=== PATIENT | male | born 1980 | race Caucasian/White ===

== ENCOUNTER 2022-01-04 00:24 | Inpatient (IN) | payer OTHER, SELFPAY ==
[2022-01-04 00:49] VITALS: BP 120/80; PULSE 82; RESP 16; TEMP 36.6; O2SAT 97; BMI 23.3
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
[2022-01-04] MEDS: traZODone HCL 50 MG TABLET PO ×3 (01:53→21:26)
[2022-01-04] MEDS: Acetaminophen 325 MG TABLET 650 MG PO ×2 (09:23→16:50)
[2022-01-04] MEDS: Buprenorphine/Naloxone 8/2 mg FILM 1 FILM SUBLINGUAL (09:23)
[2022-01-04] MEDS: LORazepam 1 MG TABLET PO ×3 (12:10→21:26)
--- NOTE | 2022-01-04 13:04 | P.CONHOSP_ITS ---
History of Present Illness Data of Consult Service Date: 01/04/22 Requesting physician: Frederick Puga Primary Care Provider: Unknown Physician HPI Reason for consult: medical h&p 41 year old history of alcohol dependence, polysubstance abuse, opioid abuse on suboxone, depression and anxiety, and who smokes 1.5 packs cigarettes daily. His last drink was 4 days ago- cosumed 1 pint vodka, sleeve nips. Was treated for withdrawal at [facility] prior to transfer to . He is reporting cold sweats, treamors, and neuropathy intermittently. Denies history of etoh withdrawal seizure. Review of Systems Review of Systems: General: No fevers, malaise, unintentional weight loss Cardiovascular: No chest pain, palpitations, or leg edema Respiratory: No shortness of breath, wheezing, cough GI: No abdominal pain, nausea, vomiting, diarrhea, constipation, melena, hematochezia Neuro: +tremors, +neuropathy. No headaches, weakness, paresthesias Psych: +sweats, depression/anxiety. No si/hi Skin: No rashes or lesions [facility] Medical History (Updated 01/04/22 @ 17:48 by Isaura Welch APRN) ADD (attention deficit disorder) Anxiety MDD (major depressive disorder) Opioid use disorder, severe, on maintenance therapy PTSD (post-traumatic stress disorder) Family History (Updated 01/04/22 @ 13:12 by QUITA Flowers) Father CAD (coronary artery disease) Diabetes Mother Lung cancer Social History Household Members: None Housing: Apartment Do you presently have visiting nurse or other home services: No Patient Tobacco Use Status: Current everyday Tobacco user Tobacco use type: Cigarette Cigarette Packs Per Day: 1 Cigarettes Per Day: 20.0 Years Smoked: 20 Smoked in Last 30 Days: Yes e-Cigarette/Vaping Use: Currently Using Patient Interested in Nicotine Replacement: Yes Patient Given Instructions on How to Stop Smoking: Yes Date Education Initiated: 01/04/22 Second Hand Smoke Exposure: No Use of substances other than those prescribed or required for medical reasons: Yes Substance Use Type: Crack/Cocaine and Marijuana Substance Use Frequency: Weekly Last Used Substance: Days (ago) Currently Displaying Signs/Symptoms of Drug Intoxication Withdrawal: No Any prior treatment program specific to substance use: No Have you been hit, kicked, punched, or otherwise hurt by someone within the past year? If so, by whom?: No Do you feel safe in your current relationship?: No Is there a partner from a previous relationship who is making you feel unsafe now?: No Are you made to feel afraid or neglected: No Spiritual Healthcare Practices: prayer Yarsani Healthcare Practices: prayer Cultural Healthcare Practices: prayer Advance Directives: No Advance Directives Information Provided: No Do you have thoughts of harming others: None Do you have a plan to hurt others: No Plan Recently lost weight without trying: No How much weight loss: Not applicable Eating poorly because of decreased appetite: No Nutrition screen score: 0 Nutrition Risks: No Nutritional Risk Poor oral hygiene: No service: No Sexual orientation: Straight/Heterosexual Meds Allergies Allergy/AdvReac Type Severity Reaction Status Date / Time No Known Allergies Allergy Verified 01/04/22 00:35 Active Medications: Current Medications Acetaminophen (Acetaminophen 325 Mg Tablet) 650 mg PO Q6H PRN PRN Reason: Headache/Pain Mild Scale (1-3) Last Admin: 01/04/22 09:23 Dose: 650 mg Al Hydroxide/Mg Hydroxide (Magnesium Hydrox/Alum Hydrox 30 Ml Oral.Susp) 30 ml PO Q6H PRN PRN Reason: Heartburn/Nausea Buprenorphine/Naloxone (Buprenorphine/Naloxone 8/2 Mg Film) 1 film SUBLINGUAL DAILY [facility] Last Admin: 01/04/22 09:23 Dose: 1 film Gabapentin (Gabapentin 400 Mg Capsule) 400 mg PO TID [facility] Hydroxyzine HCl (Hydroxyzine Hcl 25 Mg Tablet) 25 mg PO Q6H PRN PRN Reason: Anxiety Lorazepam (Lorazepam 1 Mg Tablet) 1 mg PO Q4H PRN PRN Reason: Alcohol Withdrawal Last Admin: 01/04/22 12:10 Dose: 1 mg Magnesium Hydroxide (Milk Of Magnesia 30 Ml Oral.Susp) 30 ml PO DAILY PRN PRN Reason: Constipation Multivitamins/Vitamin C (Multivitamin Tablet) 1 tab PO DAILY [facility] Nicotine Polacrilex (Nicotine Polacrilex 2 Mg Gum) 4 mg BUCCAL Q2H PRN PRN Reason: Nicotine Cravings Non-Formulary Medication (Vyvanse) 70 mg PO DAILY [facility] Thiamine HCl (Thiamine Hcl 100 Mg Tablet) 100 mg PO DAILY [facility] Trazodone HCl (Trazodone Hcl 50 Mg Tablet) 50 mg PO BEDTIME PRN PRN Reason: Insomnia Last Admin: 01/04/22 01:53 Dose: 50 mg Physical Exam Vital Signs and Narrative: Vital Signs: Last Vital Signs Temp 97.8 F 01/04/22 00:49 Pulse 82 01/04/22 00:49 Resp 16 01/04/22 00:49 BP 120/80 01/04/22 00:49 Pulse Ox 97 01/04/22 00:49 O2 Del Method 01/04/22 00:49 BMI result Body Mass Index 23.3 Constitutional - Awake and Alert, No apparent distress Eyes - PERRLA, EOMI Cardiovascular - S1S2, RRR, No edema Respiratory - Normal lung expansion, Normal respiratory effort, No respiratory distress, CTA bilaterally Gastrointestinal - NT / ND; +BS; No rebound or guarding Extremities - no calf tenderness bilaterally, no swelling Musculoskeletal - Normal inspection, normal ROM Skin - Warm/Dry, dry peeling skin face Neurological - Alert & oriented x3, CN II-XII in tact, 5/5 strength BUE/BLE, no tremor Psychological - Appropriate affect Assessment and Plan (1) MDD (major depressive disorder): Status: Acute (2) Anxiety: Status: Acute (3) Alcohol dependence: Status: Acute Plan 41 year old history of alcohol dependence, polysubstance abuse, opioid abuse on suboxone, depression and anxiety, and who smokes 1.5 packs cigarettes daily admitted to psychiatry. 1-MDD/anxiety -Plan per psychiatry 2-ADD/ADHD -plan per psychiatry 3-Alcohol dependence -CIWA scale score 16. -Ativan prn for etoh withdrawal symptoms -No hx etoh withdrawal seizure. Unlikely to experience seizure at this point given time since last drink -Continue thiamine. Recommend folic acid as well -Check vitamin b12 and replete as needed 4-Opioid dependence -Continue suboxone -Docusate prn for constipation 5-Polysubstance abuse- cocaine last use 01/01 and MJ -Addiction consult as ordered 6-Tobacco depedence -NPT patches Thank you for allowing me to participate in this consult. Signing off at this time. Please do not hesitate to call for further questions.
[2022-01-04] MEDS: Gabapentin 400 MG CAPSULE PO ×2 (15:24→20:05)
[2022-01-04] MEDS: Nicotine 21 MG PATCH.TD24 TRANSDERMA (15:24)
[2022-01-04] MEDS: Buprenorphine/Naloxone 8/2 mg TAB.SUBL 1 TAB SUBLINGUAL ×2 (15:24→20:04)
[2022-01-04] MEDS: Multivitamin TABLET 1 TAB PO (16:35)
[2022-01-04 16:45] VITALS: BP 106/59; PULSE 101; TEMP 36.1
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
[2022-01-05] MEDS: hydrOXYzine HCL 25 MG TABLET PO ×2 (00:15→22:05)
[2022-01-05] MEDS: traZODone HCL 50 MG TABLET PO ×4 (00:15→23:48)
[2022-01-05 07:00] VITALS: BMI 24.0
[2022-01-05] MEDS: Multivitamin TABLET 1 TAB PO (08:58)
[2022-01-05] MEDS: Gabapentin 400 MG CAPSULE PO ×3 (08:58→19:30)
[2022-01-05] MEDS: Dextroamphetamine/Amphetamine XR 10 MG CAP.ER.24H 30 MG PO (08:58)
[2022-01-05] MEDS: Nicotine 21 MG PATCH.TD24 TRANSDERMA (08:58)
[2022-01-05] MEDS: Thiamine HCL 100 MG TABLET PO (08:58)
[2022-01-05] MEDS: Buprenorphine/Naloxone 8/2 mg FILM 1 FILM SUBLINGUAL ×3 (09:46→19:29)
[2022-01-05] MEDS: Acetaminophen 325 MG TABLET 650 MG PO (14:26)
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
[2022-01-05 18:00] VITALS: BP 156/74; PULSE 103; RESP 16; TEMP 36.6; O2SAT 99
[2022-01-05] MEDS: LORazepam 1 MG TABLET PO ×2 (19:29→23:48)
[2022-01-05] MEDS: Mineral Oil/Petrolatum,White 106 GM Tube 1 APPL TOPICAL (19:32)
--- NOTE | 2022-01-06 00:10 | P.PNPSI_ITS ---
Subjective Subjective Date of Service: 01/05/22 Reason For Visit: Unspecified trauma, stress related d/o Subjective Notes: Conditional Voluntary Interim History: Pepe reports feeling improved. Reports sx of rosacea, eucerin cream ordered. Denies SI, HI, perceptual alterations. Reports sleep is adequate as is appetite. Visable in milieu and with peers. Medication Compliance: Yes Side effects from medications: No Attending Groups: Intermittent Review of Systems Acute medical concerns: No Medical Review of Systems: unchanged Mental Status Exam Mental Status Exam Patient Appearance: Appropriate Patient Orientation: Person, Place, Time and Situation Patient Behavior: Talkative and Good Eye Contact Mood Description: Withdrawn, Anxious and Apprehensive Affect Description: Anxious Patient Cognition Impaired: No Ability to Follow Directions: Good Speech Pattern: Spontaneous Speech Memory Description: Intact Hallucinations: None Delusions: Not Present Perceptual Disturbances: Depersonalization and Derealization Thought Content: positive for Perseveration and positive for Suicidal Ideation (denies) Depressive Symptoms: Increased Anxiety, Loss of Int. in Activity, Hopelessness, Unhappiness, Increased Fatigue, Thoughts of /Suicide (denies currently), Low Self Esteem, Loss of Energy and Difficulty Concentrating Judgement: Good Diagnostics Vital Signs (24Hr): Vital Signs - 24 hr 01/05/22 18:00 Temperature 98 F Pulse Rate 103 H Respiratory Rate 16 Blood Pressure 156/74 H Pulse Oximetry 99 Oxygen Delivery Method Room Air BMI result Body Mass Index 24.0 Medications Medications Current Medications Acetaminophen (Acetaminophen 325 Mg Tablet) 650 mg PO Q6H PRN PRN Reason: Headache/Pain Mild Scale (1-3) Last Admin: 01/05/22 14:26 Dose: 650 mg Al Hydroxide/Mg Hydroxide (Magnesium Hydrox/Alum Hydrox 30 Ml Oral.Susp) 30 ml PO Q6H PRN PRN Reason: Heartburn/Nausea Amphetamine/Dextroamphetamine (Dextroamphetamine/Amphetamine Xr 10 Mg Cap.Er.24h) 30 mg PO DAILY [facility] Last Admin: 01/05/22 08:58 Dose: 30 mg Buprenorphine/Naloxone (Buprenorphine/Naloxone 8/2 Mg Film) 1 film SUBLINGUAL TID [facility] Last Admin: 01/05/22 19:29 Dose: 1 film Docusate Sodium (Docusate Sodium 100 Mg Capsule) 100 mg PO BID PRN PRN Reason: Constipation Gabapentin (Gabapentin 400 Mg Capsule) 400 mg PO TID [facility] Last Admin: 01/05/22 19:30 Dose: 400 mg Hydroxyzine HCl (Hydroxyzine Hcl 25 Mg Tablet) 25 mg PO Q6H PRN PRN Reason: Anxiety Last Admin: 01/05/22 22:05 Dose: 25 mg Lorazepam (Lorazepam 1 Mg Tablet) 1 mg PO Q4H PRN PRN Reason: Alcohol Withdrawal Last Admin: 01/05/22 23:48 Dose: 1 mg Magnesium Hydroxide (Milk Of Magnesia 30 Ml Oral.Susp) 30 ml PO DAILY PRN PRN Reason: Constipation Multi-Ingred Cream/Lotion/Oil/Oint (Mineral Oil/Petrolatum,White 106 Gm Tube) 1 appl TOPICAL BID [facility]; Protocol Last Admin: 01/05/22 19:32 Dose: 1 appl Multivitamins/Vitamin C (Multivitamin Tablet) 1 tab PO DAILY [facility] Last Admin: 01/05/22 08:58 Dose: 1 tab Nicotine (Nicotine 21 Mg Patch.Td24) 21 mg TRANSDERMA DAILY [facility] Last Admin: 01/05/22 08:58 Dose: 21 mg Nicotine Polacrilex (Nicotine Polacrilex 2 Mg Gum) 4 mg BUCCAL Q2H PRN PRN Reason: Nicotine Cravings Non-Formulary Medication (Vyvanse) 70 mg PO DAILY [facility] Sertraline HCl (Sertraline Hcl 25 Mg Tablet) 25 mg PO DAILY [facility] Thiamine HCl (Thiamine Hcl 100 Mg Tablet) 100 mg PO DAILY [facility] Last Admin: 01/05/22 08:58 Dose: 100 mg Trazodone HCl (Trazodone Hcl 50 Mg Tablet) 50 mg PO BEDTIME PRN PRN Reason: Insomnia Last Admin: 01/05/22 23:48 Dose: 50 mg Allergies Allergies Allergy/AdvReac Type Severity Reaction Status Date / Time No Known Allergies Allergy Verified 01/04/22 00:35 Assessment & Plan Assessment & Plan (1) MDD (major depressive disorder): Status: Acute Code(s): F32.9 - Major depressive disorder, single episode, unspecified (2) Anxiety: Status: Acute Code(s): F41.9 - Anxiety disorder, unspecified (3) Alcohol dependence: Status: Acute Code(s): F10.20 - Alcohol dependence, uncomplicated Plan 41 year old history of alcohol dependence, polysubstance abuse, opioid abuse on suboxone, depression and anxiety, and who smokes 1.5 packs cigarettes daily admitted to psychiatry. 1-MDD/anxiety -Plan per psychiatry 2-ADD/ADHD -plan per psychiatry 3-Alcohol dependence -CIWA scale score 16. -Ativan prn for etoh withdrawal symptoms -No hx etoh withdrawal seizure. Unlikely to experience seizure at this point given time since last drink -Continue thiamine. Recommend folic acid as well -Check vitamin b12 and replete as needed 4-Opioid dependence -Continue suboxone -Docusate prn for constipation 5-Polysubstance abuse- cocaine last use 01/01 and MJ -Addiction consult as ordered 6-Tobacco depedence -NPT patches Thank you for allowing me to participate in this consult. Signing off at this time. Please do not hesitate to call for further questions. I spent minutes with the patient and/or on the patient floor today, greater than?50% of which was spent counseling/coordinating care. Patient educated on: medication risk/benefits and therapeutic strategies Informed Consent: understands Reason for contiued inpatient stay Substantial Risk for: rapid decompensation
[2022-01-06] MEDS: Dextroamphetamine/Amphetamine XR 10 MG CAP.ER.24H 30 MG PO (09:18)
[2022-01-06] MEDS: Thiamine HCL 100 MG TABLET PO (09:19)
[2022-01-06] MEDS: Sertraline HCL 25 MG TABLET PO (09:19)
[2022-01-06] MEDS: Multivitamin TABLET 1 TAB PO (09:19)
[2022-01-06] MEDS: Gabapentin 400 MG CAPSULE PO ×3 (09:19→19:54)
[2022-01-06] MEDS: Folic Acid 1 MG TABLET PO (09:19)
[2022-01-06] MEDS: Nicotine 21 MG PATCH.TD24 TRANSDERMA (09:20)
[2022-01-06] MEDS: Buprenorphine/Naloxone 8/2 mg FILM 1 FILM SUBLINGUAL ×3 (09:21→19:54)
[2022-01-06 09:23] VITALS: BP 100/73; PULSE 122; RESP 18; TEMP 36.1; O2SAT 96
[2022-01-06 10:50] LABS: Folate 6.6 ng/mL (> or = 4.0); Vitamin B12 399 pg/mL (200-900)
[2022-01-06] MEDS: Nicotine Polacrilex 2 MG GUM 4 MG BUCCAL (13:47)
[2022-01-06] MEDS: LORazepam 1 MG TABLET PO ×2 (14:46→22:22)
--- NOTE | 2022-01-06 16:40 | HO.ADDICTPRO ---
Subjective Subjective Date of Service: 01/06/22 Reason For Visit: Unspecified trauma, stress related d/o Interim History: Patient seen in follow up. Seen by RSRN yesterday and requesting to start Disulfiram. Patient reports he had been prescribed disulfiram for some time and stopped taking it approx 7 months ago. He reports that while he was taking it, it was effective in that he never had a drink. When he drank on it, he became extremely ill, but continued to drink. He is drinking about a sleeve of fireball nips daily along with beer. He has been in recovery from OUD for some time, and has established providers at [facility]. Aware of risks and benefits to disulfiram. Requesting to start it prior to discharge so that deterrent is in place. Review of Systems Constitutional: Reports as per HPI and Reports no additional constitutional complaints Mental Status Exam Mental Status Exam Patient Appearance: Well Grooomed Patient Orientation: Person, Place, Time and Situation Level of Consciousness: Awake and Appropriate Patient Behavior: Appropriate and Cooperative Mood Description: Anxious Affect Description: Appropriate and Anxious Patient Cognition Impaired: No Thought Process: Intact and Goal Oriented Thought Content: positive for Goal Oriented Judgement: Fair Diagnostics Vital Signs (24Hr): Vital Signs - 24 hr 01/05/22 18:00 01/06/22 09:23 Temperature 98 F 97.0 F Pulse Rate 103 H 122 H Respiratory Rate 16 18 Blood Pressure 156/74 H 100/73 Pulse Oximetry 99 96 Oxygen Delivery Method Room Air Room Air BMI result Body Mass Index 24.0 Labs Labs: Laboratory Results - last 48 hr 01/06/22 08:50 Vitamin B12 399 Folate 6.6 Medications Medications Current Medications Acetaminophen (Acetaminophen 325 Mg Tablet) 650 mg PO Q6H PRN PRN Reason: Headache/Pain Mild Scale (1-3) Last Admin: 01/05/22 14:26 Dose: 650 mg Al Hydroxide/Mg Hydroxide (Magnesium Hydrox/Alum Hydrox 30 Ml Oral.Susp) 30 ml PO Q6H PRN PRN Reason: Heartburn/Nausea Amphetamine/Dextroamphetamine (Dextroamphetamine/Amphetamine Xr 10 Mg Cap.Er.24h) 30 mg PO DAILY [facility] Last Admin: 01/06/22 09:18 Dose: 30 mg Buprenorphine/Naloxone (Buprenorphine/Naloxone 8/2 Mg Film) 1 film SUBLINGUAL TID [facility] Last Admin: 01/06/22 14:14 Dose: 1 film Docusate Sodium (Docusate Sodium 100 Mg Capsule) 100 mg PO BID PRN PRN Reason: Constipation Folic Acid (Folic Acid 1 Mg Tablet) 1 mg PO DAILY [facility] Last Admin: 01/06/22 09:19 Dose: 1 mg Gabapentin (Gabapentin 400 Mg Capsule) 400 mg PO TID [facility] Last Admin: 01/06/22 14:14 Dose: 400 mg Hydroxyzine HCl (Hydroxyzine Hcl 25 Mg Tablet) 25 mg PO Q6H PRN PRN Reason: Anxiety Last Admin: 01/05/22 22:05 Dose: 25 mg Lorazepam (Lorazepam 1 Mg Tablet) 1 mg PO Q4H PRN PRN Reason: Alcohol Withdrawal Last Admin: 01/06/22 14:46 Dose: 1 mg Magnesium Hydroxide (Milk Of Magnesia 30 Ml Oral.Susp) 30 ml PO DAILY PRN PRN Reason: Constipation Multi-Ingred Cream/Lotion/Oil/Oint (Mineral Oil/Petrolatum,White 106 Gm Tube) 1 appl TOPICAL BID [facility]; Protocol Last Admin: 01/06/22 09:22 Dose: Not Given Multivitamins/Vitamin C (Multivitamin Tablet) 1 tab PO DAILY [facility] Last Admin: 01/06/22 09:19 Dose: 1 tab Nicotine (Nicotine 21 Mg Patch.Td24) 21 mg TRANSDERMA DAILY [facility] Last Admin: 01/06/22 09:20 Dose: 21 mg Nicotine Polacrilex (Nicotine Polacrilex 2 Mg Gum) 4 mg BUCCAL Q2H PRN PRN Reason: Nicotine Cravings Last Admin: 01/06/22 13:47 Dose: 4 mg Non-Formulary Medication (Vyvanse) 70 mg PO DAILY [facility] Sertraline HCl (Sertraline Hcl 25 Mg Tablet) 25 mg PO DAILY [facility] Last Admin: 01/06/22 09:19 Dose: 25 mg Thiamine HCl (Thiamine Hcl 100 Mg Tablet) 100 mg PO DAILY [facility] Last Admin: 01/06/22 09:19 Dose: 100 mg Trazodone HCl (Trazodone Hcl 50 Mg Tablet) 50 mg PO BEDTIME PRN PRN Reason: Insomnia Last Admin: 01/05/22 23:48 Dose: 50 mg Allergies Allergies Allergy/AdvReac Type Severity Reaction Status Date / Time No Known Allergies Allergy Verified 01/04/22 00:35 Assessment & Plan Assessment & Plan (1) Alcohol use disorder, severe, dependence: Status: Acute Code(s): F10.20 - Alcohol dependence, uncomplicated Assessment and Plan: last drink reported to be 01/01. Discussed case with RN. Disulfiram ordered to community pharmacy, and someone will bring to hospital should be taking once daily in AM reinforce interactions with alcohol including common items like hand field sales associate I spent __30____ minutes with the patient and/or on the patient floor today, greater than?50% of which was spent counseling/coordinating care.
--- NOTE | 2022-01-06 16:50 | HO.PSYCHPN ---
Subjective Subjective Date of Service: 01/06/22 Reason For Visit: Unspecified trauma, stress related d/o Subjective Notes: Conditional Voluntary Healthcare Proxy: No Guardianship: No Medical Problems Affecting Mental Status: No Interim History: Denies questions or concerns today. Agrees to begin folic acid replacement. Reports sleep is adequate, appetite returning, continues to experience detox sx. Attempting to manage with non medication interventions he reports when possible Medication Compliance: Yes Side effects from medications: No Attending Groups: Intermittent Review of Systems Acute medical concerns: No Medical Review of Systems: unchanged Mental Status Exam Mental Status Exam Patient Appearance: Appropriate Patient Orientation: Person, Place, Time and Situation Patient Behavior: Talkative and Good Eye Contact Mood Description: Withdrawn, Anxious and Apprehensive Affect Description: Anxious Patient Cognition Impaired: No Ability to Follow Directions: Good Speech Pattern: Spontaneous Speech Memory Description: Intact Hallucinations: None Delusions: Not Present Perceptual Disturbances: Depersonalization and Derealization Thought Content: positive for Perseveration and positive for Suicidal Ideation (denies) Depressive Symptoms: Increased Anxiety, Loss of Int. in Activity, Hopelessness, Unhappiness, Increased Fatigue, Thoughts of /Suicide (denies currently), Low Self Esteem, Loss of Energy and Difficulty Concentrating Judgement: Good Diagnostics Vital Signs (24Hr): Vital Signs - 24 hr 01/05/22 18:00 01/06/22 09:23 Temperature 98 F 97.0 F Pulse Rate 103 H 122 H Respiratory Rate 16 18 Blood Pressure 156/74 H 100/73 Pulse Oximetry 99 96 Oxygen Delivery Method Room Air Room Air BMI result Body Mass Index 24.0 Labs Labs: Laboratory Results - last 48 hr 01/06/22 08:50 Vitamin B12 399 Folate 6.6 Medications Medications Current Medications Acetaminophen (Acetaminophen 325 Mg Tablet) 650 mg PO Q6H PRN PRN Reason: Headache/Pain Mild Scale (1-3) Last Admin: 01/05/22 14:26 Dose: 650 mg Al Hydroxide/Mg Hydroxide (Magnesium Hydrox/Alum Hydrox 30 Ml Oral.Susp) 30 ml PO Q6H PRN PRN Reason: Heartburn/Nausea Amphetamine/Dextroamphetamine (Dextroamphetamine/Amphetamine Xr 10 Mg Cap.Er.24h) 30 mg PO DAILY [facility] Last Admin: 01/06/22 09:18 Dose: 30 mg Buprenorphine/Naloxone (Buprenorphine/Naloxone 8/2 Mg Film) 1 film SUBLINGUAL TID [facility] Last Admin: 01/06/22 14:14 Dose: 1 film Docusate Sodium (Docusate Sodium 100 Mg Capsule) 100 mg PO BID PRN PRN Reason: Constipation Folic Acid (Folic Acid 1 Mg Tablet) 1 mg PO DAILY [facility] Last Admin: 01/06/22 09:19 Dose: 1 mg Gabapentin (Gabapentin 400 Mg Capsule) 400 mg PO TID [facility] Last Admin: 01/06/22 14:14 Dose: 400 mg Hydroxyzine HCl (Hydroxyzine Hcl 25 Mg Tablet) 25 mg PO Q6H PRN PRN Reason: Anxiety Last Admin: 01/05/22 22:05 Dose: 25 mg Lorazepam (Lorazepam 1 Mg Tablet) 1 mg PO Q4H PRN PRN Reason: Alcohol Withdrawal Last Admin: 01/06/22 14:46 Dose: 1 mg Magnesium Hydroxide (Milk Of Magnesia 30 Ml Oral.Susp) 30 ml PO DAILY PRN PRN Reason: Constipation Multi-Ingred Cream/Lotion/Oil/Oint (Mineral Oil/Petrolatum,White 106 Gm Tube) 1 appl TOPICAL BID [facility]; Protocol Last Admin: 01/06/22 09:22 Dose: Not Given Multivitamins/Vitamin C (Multivitamin Tablet) 1 tab PO DAILY [facility] Last Admin: 01/06/22 09:19 Dose: 1 tab Nicotine (Nicotine 21 Mg Patch.Td24) 21 mg TRANSDERMA DAILY [facility] Last Admin: 01/06/22 09:20 Dose: 21 mg Nicotine Polacrilex (Nicotine Polacrilex 2 Mg Gum) 4 mg BUCCAL Q2H PRN PRN Reason: Nicotine Cravings Last Admin: 01/06/22 13:47 Dose: 4 mg Non-Formulary Medication (Vyvanse) 70 mg PO DAILY [facility] Sertraline HCl (Sertraline Hcl 25 Mg Tablet) 25 mg PO DAILY [facility] Last Admin: 01/06/22 09:19 Dose: 25 mg Thiamine HCl (Thiamine Hcl 100 Mg Tablet) 100 mg PO DAILY [facility] Last Admin: 01/06/22 09:19 Dose: 100 mg Trazodone HCl (Trazodone Hcl 50 Mg Tablet) 50 mg PO BEDTIME PRN PRN Reason: Insomnia Last Admin: 01/05/22 23:48 Dose: 50 mg Allergies Allergies Allergy/AdvReac Type Severity Reaction Status Date / Time No Known Allergies Allergy Verified 01/04/22 00:35 Assessment & Plan Assessment & Plan (1) MDD (major depressive disorder): Status: Acute Code(s): F32.9 - Major depressive disorder, single episode, unspecified Assessment and Plan: 01/06/22- Continue current plan. (2) Anxiety: Status: Acute Code(s): F41.9 - Anxiety disorder, unspecified (3) Alcohol dependence: Status: Acute Code(s): F10.20 - Alcohol dependence, uncomplicated Plan 41 year old history of alcohol dependence, polysubstance abuse, opioid abuse on suboxone, depression and anxiety, and who smokes 1.5 packs cigarettes daily admitted to psychiatry. 1-MDD/anxiety -Plan per psychiatry 2-ADD/ADHD -plan per psychiatry 3-Alcohol dependence -CIWA scale score 16. -Ativan prn for etoh withdrawal symptoms -No hx etoh withdrawal seizure. Unlikely to experience seizure at this point given time since last drink -Continue thiamine. Recommend folic acid as well -Check vitamin b12 and replete as needed 4-Opioid dependence -Continue suboxone -Docusate prn for constipation 5-Polysubstance abuse- cocaine last use 01/01 and MJ -Addiction consult as ordered 6-Tobacco depedence -NPT patches Thank you for allowing me to participate in this consult. Signing off at this time. Please do not hesitate to call for further questions. I spent minutes with the patient and/or on the patient floor today, greater than?50% of which was spent counseling/coordinating care. Patient educated on: medication risk/benefits and therapeutic strategies Informed Consent: understands and further education needed Reason for contiued inpatient stay Substantial Risk for: rapid decompensation
[2022-01-06 18:00] VITALS: BP 131/76; PULSE 93; RESP 16; TEMP 36.6; O2SAT 96
[2022-01-06] MEDS: traZODone HCL 50 MG TABLET PO ×2 (22:22→23:30)
[2022-01-06] MEDS: hydrOXYzine HCL 25 MG TABLET PO (23:30)
[2022-01-07 09:00] VITALS: BP 114/78; PULSE 94; TEMP 36.6
[2022-01-07] MEDS: Buprenorphine/Naloxone 8/2 mg FILM 1 FILM SUBLINGUAL ×3 (09:52→19:07)
[2022-01-07] MEDS: Dextroamphetamine/Amphetamine XR 10 MG CAP.ER.24H 30 MG PO (09:52)
[2022-01-07] MEDS: Nicotine 21 MG PATCH.TD24 TRANSDERMA (09:52)
[2022-01-07] MEDS: Acetaminophen 325 MG TABLET 650 MG PO (09:53)
[2022-01-07] MEDS: Gabapentin 400 MG CAPSULE PO ×3 (09:53→19:07)
[2022-01-07] MEDS: Folic Acid 1 MG TABLET PO (09:53)
[2022-01-07] MEDS: Multivitamin TABLET 1 TAB PO (09:53)
[2022-01-07] MEDS: Thiamine HCL 100 MG TABLET PO (09:53)
[2022-01-07] MEDS: Sertraline HCL 25 MG TABLET PO (09:54)
[2022-01-07] MEDS: Mineral Oil/Petrolatum,White 106 GM Tube 1 APPL TOPICAL (09:56)
[2022-01-07] MEDS: LORazepam 1 MG TABLET PO ×2 (13:12→19:07)
[2022-01-07 18:00] VITALS: BP 137/83; PULSE 119; TEMP 36.3; O2SAT 94
[2022-01-07] MEDS: traZODone HCL 50 MG TABLET PO ×3 (19:07→22:21)
[2022-01-07] MEDS: Nicotine Polacrilex 2 MG GUM 4 MG BUCCAL (20:16)
[2022-01-07] MEDS: hydrOXYzine HCL 25 MG TABLET PO (22:21)
[2022-01-08 08:30] VITALS: BP 149/72; PULSE 91; TEMP 36.4
[2022-01-08] MEDS: Nicotine 21 MG PATCH.TD24 TRANSDERMA (08:58)
[2022-01-08] MEDS: Dextroamphetamine/Amphetamine XR 10 MG CAP.ER.24H 30 MG PO (08:59)
[2022-01-08] MEDS: Sertraline HCL 25 MG TABLET PO (09:00)
[2022-01-08] MEDS: Acetaminophen 325 MG TABLET 650 MG PO ×2 (09:00→16:53)
[2022-01-08] MEDS: Multivitamin TABLET 1 TAB PO (09:00)
[2022-01-08] MEDS: Thiamine HCL 100 MG TABLET PO (09:00)
[2022-01-08] MEDS: Gabapentin 400 MG CAPSULE PO ×3 (09:00→18:52)
[2022-01-08] MEDS: Mineral Oil/Petrolatum,White 106 GM Tube 1 APPL TOPICAL (09:00)
[2022-01-08] MEDS: Folic Acid 1 MG TABLET PO (09:00)
[2022-01-08] MEDS: Buprenorphine/Naloxone 8/2 mg FILM 1 FILM SUBLINGUAL ×3 (09:01→18:52)
[2022-01-08] MEDS: LORazepam 1 MG TABLET PO ×2 (10:36→16:53)
[2022-01-08] MEDS: Milk of Magnesia 30 ML ORAL.SUSP PO (10:57)
--- NOTE | 2022-01-08 16:06 | HO.PSYCHPN ---
Subjective Subjective Date of Service: 01/07/22 Reason For Visit: Unspecified trauma, stress related d/o Subjective Notes: Conditional Voluntary Healthcare Proxy: No Guardianship: No Medical Problems Affecting Mental Status: No Interim History: No questions or concerns today. Denies med SE Continues with subjective sx of detox. Medication Compliance: Yes Side effects from medications: No Attending Groups: Intermittent Review of Systems Acute medical concerns: No Medical Review of Systems: unchanged Mental Status Exam Mental Status Exam Patient Appearance: Appropriate Patient Orientation: Person, Place, Time and Situation Patient Behavior: Talkative and Good Eye Contact Mood Description: Withdrawn, Anxious and Apprehensive Affect Description: Anxious Patient Cognition Impaired: No Ability to Follow Directions: Good Speech Pattern: Spontaneous Speech Memory Description: Intact Hallucinations: None Delusions: Not Present Perceptual Disturbances: Depersonalization and Derealization Thought Content: positive for Perseveration and positive for Suicidal Ideation (denies) Depressive Symptoms: Increased Anxiety, Loss of Int. in Activity, Hopelessness, Unhappiness, Increased Fatigue, Thoughts of /Suicide (denies currently), Low Self Esteem, Loss of Energy and Difficulty Concentrating Judgement: Good Diagnostics Vital Signs (24Hr): Vital Signs - 24 hr 01/07/22 18:00 01/08/22 08:30 Temperature 97.4 F 97.6 F Pulse Rate 119 H 91 Blood Pressure 137/83 149/72 H Pulse Oximetry 94 Oxygen Delivery Method Room Air BMI result Body Mass Index 24.0 Medications Medications Current Medications Acetaminophen (Acetaminophen 325 Mg Tablet) 650 mg PO Q6H PRN PRN Reason: Headache/Pain Mild Scale (1-3) Last Admin: 01/08/22 09:00 Dose: 650 mg Al Hydroxide/Mg Hydroxide (Magnesium Hydrox/Alum Hydrox 30 Ml Oral.Susp) 30 ml PO Q6H PRN PRN Reason: Heartburn/Nausea Amphetamine/Dextroamphetamine (Dextroamphetamine/Amphetamine Xr 10 Mg Cap.Er.24h) 30 mg PO DAILY [facility] Last Admin: 01/08/22 08:59 Dose: 30 mg Buprenorphine/Naloxone (Buprenorphine/Naloxone 8/2 Mg Film) 1 film SUBLINGUAL TID [facility] Last Admin: 01/08/22 14:19 Dose: 1 film Docusate Sodium (Docusate Sodium 100 Mg Capsule) 100 mg PO BID PRN PRN Reason: Constipation Fluoxetine HCl (Fluoxetine Hcl 20 Mg Capsule) 20 mg PO DAILY [facility] Folic Acid (Folic Acid 1 Mg Tablet) 1 mg PO DAILY [facility] Last Admin: 01/08/22 09:00 Dose: 1 mg Gabapentin (Gabapentin 400 Mg Capsule) 400 mg PO TID [facility] Last Admin: 01/08/22 14:19 Dose: 400 mg Hydroxyzine HCl (Hydroxyzine Hcl 25 Mg Tablet) 25 mg PO Q6H PRN PRN Reason: Anxiety Last Admin: 01/07/22 22:21 Dose: 25 mg Lorazepam (Lorazepam 1 Mg Tablet) 1 mg PO Q4H PRN PRN Reason: Alcohol Withdrawal Last Admin: 01/08/22 10:36 Dose: 1 mg Magnesium Hydroxide (Milk Of Magnesia 30 Ml Oral.Susp) 30 ml PO DAILY PRN PRN Reason: Constipation Last Admin: 01/08/22 10:57 Dose: 30 ml Multi-Ingred Cream/Lotion/Oil/Oint (Mineral Oil/Petrolatum,White 106 Gm Tube) 1 appl TOPICAL BID [facility]; Protocol Last Admin: 01/08/22 09:00 Dose: 1 appl Multivitamins/Vitamin C (Multivitamin Tablet) 1 tab PO DAILY [facility] Last Admin: 01/08/22 09:00 Dose: 1 tab Nicotine (Nicotine 21 Mg Patch.Td24) 21 mg TRANSDERMA DAILY [facility] Last Admin: 01/08/22 08:58 Dose: 21 mg Nicotine Polacrilex (Nicotine Polacrilex 2 Mg Gum) 4 mg BUCCAL Q2H PRN PRN Reason: Nicotine Cravings Last Admin: 01/07/22 20:16 Dose: 4 mg Thiamine HCl (Thiamine Hcl 100 Mg Tablet) 100 mg PO DAILY [facility] Last Admin: 01/08/22 09:00 Dose: 100 mg Trazodone HCl (Trazodone Hcl 100 Mg Tablet) 100 mg PO BEDTIME PRN PRN Reason: Insomnia Allergies Allergies Allergy/AdvReac Type Severity Reaction Status Date / Time No Known Allergies Allergy Verified 01/04/22 00:35 Assessment & Plan Assessment & Plan (1) MDD (major depressive disorder): Status: Acute Code(s): F32.9 - Major depressive disorder, single episode, unspecified Assessment and Plan: 01/06/22- Continue current plan. 01/07/22- Continue current plan. (2) Anxiety: Status: Acute Code(s): F41.9 - Anxiety disorder, unspecified (3) Alcohol dependence: Status: Acute Code(s): F10.20 - Alcohol dependence, uncomplicated Plan 41 year old history of alcohol dependence, polysubstance abuse, opioid abuse on suboxone, depression and anxiety, and who smokes 1.5 packs cigarettes daily admitted to psychiatry. 1-MDD/anxiety -Plan per psychiatry 2-ADD/ADHD -plan per psychiatry 3-Alcohol dependence -CIWA scale score 16. -Ativan prn for etoh withdrawal symptoms -No hx etoh withdrawal seizure. Unlikely to experience seizure at this point given time since last drink -Continue thiamine. Recommend folic acid as well -Check vitamin b12 and replete as needed 4-Opioid dependence -Continue suboxone -Docusate prn for constipation 5-Polysubstance abuse- cocaine last use 01/01 and MJ -Addiction consult as ordered 6-Tobacco depedence -NPT patches Thank you for allowing me to participate in this consult. Signing off at this time. Please do not hesitate to call for further questions. I spent minutes with the patient and/or on the patient floor today, greater than?50% of which was spent counseling/coordinating care. Patient educated on: therapeutic strategies Informed Consent: understands Reason for contiued inpatient stay Substantial Risk for: harm to self and rapid decompensation
[2022-01-08 16:41] VITALS: BP 111/87; PULSE 90; TEMP 36.3; O2SAT 95
--- NOTE | 2022-01-08 16:46 | HO.PSYCHPN ---
Subjective Subjective Date of Service: 01/08/22 Reason For Visit: Unspecified trauma, stress related d/o Subjective Notes: Conditional Voluntary Interim History: Pepe reports feeling well. Denies current concerns. Planning discharge for 01/11. Medication Compliance: Yes Side effects from medications: No Attending Groups: Intermittent Review of Systems Acute medical concerns: No Medical Review of Systems: unchanged Mental Status Exam Mental Status Exam Patient Appearance: Appropriate Patient Orientation: Person, Place, Time and Situation Patient Behavior: Talkative and Good Eye Contact Mood Description: Withdrawn, Anxious and Apprehensive Affect Description: Anxious Patient Cognition Impaired: No Ability to Follow Directions: Good Speech Pattern: Spontaneous Speech Memory Description: Intact Hallucinations: None Delusions: Not Present Perceptual Disturbances: Depersonalization and Derealization Thought Content: positive for Perseveration and positive for Suicidal Ideation (denies) Depressive Symptoms: Increased Anxiety, Loss of Int. in Activity, Hopelessness, Unhappiness, Increased Fatigue, Thoughts of /Suicide (denies currently), Low Self Esteem, Loss of Energy and Difficulty Concentrating Judgement: Good Diagnostics Vital Signs (24Hr): Vital Signs - 24 hr 01/07/22 18:00 01/08/22 08:30 01/08/22 16:41 Temperature 97.4 F 97.6 F 97.4 F Pulse Rate 119 H 91 90 Blood Pressure 137/83 149/72 H 111/87 Pulse Oximetry 94 95 Oxygen Delivery Method Room Air Room Air BMI result Body Mass Index 24.0 Medications Medications Current Medications Acetaminophen (Acetaminophen 325 Mg Tablet) 650 mg PO Q6H PRN PRN Reason: Headache/Pain Mild Scale (1-3) Last Admin: 01/08/22 09:00 Dose: 650 mg Al Hydroxide/Mg Hydroxide (Magnesium Hydrox/Alum Hydrox 30 Ml Oral.Susp) 30 ml PO Q6H PRN PRN Reason: Heartburn/Nausea Amphetamine/Dextroamphetamine (Dextroamphetamine/Amphetamine Xr 10 Mg Cap.Er.24h) 30 mg PO DAILY [facility] Last Admin: 01/08/22 08:59 Dose: 30 mg Buprenorphine/Naloxone (Buprenorphine/Naloxone 8/2 Mg Film) 1 film SUBLINGUAL TID [facility] Last Admin: 01/08/22 14:19 Dose: 1 film Docusate Sodium (Docusate Sodium 100 Mg Capsule) 100 mg PO BID PRN PRN Reason: Constipation Fluoxetine HCl (Fluoxetine Hcl 20 Mg Capsule) 20 mg PO DAILY [facility] Folic Acid (Folic Acid 1 Mg Tablet) 1 mg PO DAILY [facility] Last Admin: 01/08/22 09:00 Dose: 1 mg Gabapentin (Gabapentin 400 Mg Capsule) 400 mg PO TID [facility] Last Admin: 01/08/22 14:19 Dose: 400 mg Hydroxyzine HCl (Hydroxyzine Hcl 25 Mg Tablet) 25 mg PO Q6H PRN PRN Reason: Anxiety Last Admin: 01/07/22 22:21 Dose: 25 mg Lorazepam (Lorazepam 1 Mg Tablet) 1 mg PO Q4H PRN PRN Reason: Alcohol Withdrawal Last Admin: 01/08/22 10:36 Dose: 1 mg Magnesium Hydroxide (Milk Of Magnesia 30 Ml Oral.Susp) 30 ml PO DAILY PRN PRN Reason: Constipation Last Admin: 01/08/22 10:57 Dose: 30 ml Multi-Ingred Cream/Lotion/Oil/Oint (Mineral Oil/Petrolatum,White 106 Gm Tube) 1 appl TOPICAL BID [facility]; Protocol Last Admin: 01/08/22 09:00 Dose: 1 appl Multivitamins/Vitamin C (Multivitamin Tablet) 1 tab PO DAILY [facility] Last Admin: 01/08/22 09:00 Dose: 1 tab Nicotine (Nicotine 21 Mg Patch.Td24) 21 mg TRANSDERMA DAILY [facility] Last Admin: 01/08/22 08:58 Dose: 21 mg Nicotine Polacrilex (Nicotine Polacrilex 2 Mg Gum) 4 mg BUCCAL Q2H PRN PRN Reason: Nicotine Cravings Last Admin: 01/07/22 20:16 Dose: 4 mg Thiamine HCl (Thiamine Hcl 100 Mg Tablet) 100 mg PO DAILY [facility] Last Admin: 01/08/22 09:00 Dose: 100 mg Trazodone HCl (Trazodone Hcl 100 Mg Tablet) 100 mg PO BEDTIME PRN PRN Reason: Insomnia Allergies Allergies Allergy/AdvReac Type Severity Reaction Status Date / Time No Known Allergies Allergy Verified 01/04/22 00:35 Assessment & Plan Assessment & Plan (1) MDD (major depressive disorder): Status: Acute Code(s): F32.9 - Major depressive disorder, single episode, unspecified Assessment and Plan: 01/06/22- Continue current plan. 01/07/22- Continue current plan. 01/08/22- Discussion with Pepe about out patient supports to help with sobriety and sx mgt. We discussed PHP. He will consider. (2) Anxiety: Status: Acute Code(s): F41.9 - Anxiety disorder, unspecified (3) Alcohol dependence: Status: Acute Code(s): F10.20 - Alcohol dependence, uncomplicated Plan 41 year old history of alcohol dependence, polysubstance abuse, opioid abuse on suboxone, depression and anxiety, and who smokes 1.5 packs cigarettes daily admitted to psychiatry. 1-MDD/anxiety -Plan per psychiatry 2-ADD/ADHD -plan per psychiatry 3-Alcohol dependence -CIWA scale score 16. -Ativan prn for etoh withdrawal symptoms -No hx etoh withdrawal seizure. Unlikely to experience seizure at this point given time since last drink -Continue thiamine. Recommend folic acid as well -Check vitamin b12 and replete as needed 4-Opioid dependence -Continue suboxone -Docusate prn for constipation 5-Polysubstance abuse- cocaine last use 01/01 and MJ -Addiction consult as ordered 6-Tobacco depedence -NPT patches Thank you for allowing me to participate in this consult. Signing off at this time. Please do not hesitate to call for further questions. I spent minutes with the patient and/or on the patient floor today, greater than?50% of which was spent counseling/coordinating care. Patient educated on: therapeutic strategies Informed Consent: further education needed Reason for contiued inpatient stay Substantial Risk for: harm to self, inability to function and rapid decompensation
[2022-01-08] MEDS: traZODone HCL 100 MG TABLET PO ×2 (18:52→21:03)
[2022-01-09 06:00] VITALS: BP 115/68; PULSE 86; RESP 16; TEMP 36.4; O2SAT 97
[2022-01-09] MEDS: Multivitamin TABLET 1 TAB PO (08:59)
[2022-01-09] MEDS: Nicotine 21 MG PATCH.TD24 TRANSDERMA (08:59)
[2022-01-09] MEDS: Folic Acid 1 MG TABLET PO (08:59)
[2022-01-09] MEDS: Gabapentin 400 MG CAPSULE PO ×3 (08:59→19:43)
[2022-01-09] MEDS: Thiamine HCL 100 MG TABLET PO (08:59)
[2022-01-09] MEDS: Buprenorphine/Naloxone 8/2 mg FILM 1 FILM SUBLINGUAL ×3 (08:59→19:41)
[2022-01-09] MEDS: LORazepam 1 MG TABLET PO (08:59)
[2022-01-09] MEDS: Dextroamphetamine/Amphetamine XR 10 MG CAP.ER.24H 30 MG PO (08:59)
[2022-01-09] MEDS: FLUoxetine HCl 20 MG CAPSULE PO (08:59)
[2022-01-09] MEDS: Mineral Oil/Petrolatum,White 106 GM Tube 1 APPL TOPICAL (09:00)
[2022-01-09] MEDS: Acetaminophen 325 MG TABLET 650 MG PO ×2 (12:01→17:49)
[2022-01-09] MEDS: hydrOXYzine HCL 25 MG TABLET PO ×2 (12:02→17:49)
[2022-01-09] MEDS: Milk of Magnesia 30 ML ORAL.SUSP PO (12:02)
[2022-01-09] MEDS: Nicotine Polacrilex 2 MG GUM 4 MG BUCCAL (17:37)
[2022-01-09 18:00] VITALS: BP 129/80; PULSE 97; RESP 18; TEMP 36.6; O2SAT 97
--- NOTE | 2022-01-09 18:53 | HO.PSYCHPN ---
Subjective Subjective Date of Service: 01/09/22 Reason For Visit: Unspecified trauma, stress related d/o Subjective Notes: Conditional Voluntary Interim History: Continued discussion of PHP referral with pt. He is interested and believes it may help in transition to home with his parents. He will discuss with his social welfare administrator and request referral. Medication Compliance: Yes Side effects from medications: No Attending Groups: Intermittent Review of Systems Acute medical concerns: No Medical Review of Systems: unchanged Mental Status Exam Mental Status Exam Patient Appearance: Appropriate Patient Orientation: Person, Place, Time and Situation Patient Behavior: Talkative and Good Eye Contact Mood Description: Withdrawn, Anxious and Apprehensive Affect Description: Anxious Patient Cognition Impaired: No Ability to Follow Directions: Good Speech Pattern: Spontaneous Speech Memory Description: Intact Hallucinations: None Delusions: Not Present Perceptual Disturbances: Depersonalization and Derealization Thought Content: positive for Perseveration and positive for Suicidal Ideation (denies) Depressive Symptoms: Increased Anxiety, Loss of Int. in Activity, Hopelessness, Unhappiness, Increased Fatigue, Thoughts of /Suicide (denies currently), Low Self Esteem, Loss of Energy and Difficulty Concentrating Judgement: Good Diagnostics Vital Signs (24Hr): Vital Signs - 24 hr 01/09/22 06:00 01/09/22 18:00 Temperature 97.5 F 97.8 F Pulse Rate 86 97 Respiratory Rate 16 18 Blood Pressure 115/68 129/80 Pulse Oximetry 97 97 Oxygen Delivery Method Room Air Room Air BMI result Body Mass Index 24.0 Medications Medications Current Medications Acetaminophen (Acetaminophen 325 Mg Tablet) 650 mg PO Q6H PRN PRN Reason: Headache/Pain Mild Scale (1-3) Last Admin: 01/09/22 17:49 Dose: 650 mg Al Hydroxide/Mg Hydroxide (Magnesium Hydrox/Alum Hydrox 30 Ml Oral.Susp) 30 ml PO Q6H PRN PRN Reason: Heartburn/Nausea Amphetamine/Dextroamphetamine (Dextroamphetamine/Amphetamine Xr 10 Mg Cap.Er.24h) 30 mg PO DAILY [facility] Last Admin: 01/09/22 08:59 Dose: 30 mg Buprenorphine/Naloxone (Buprenorphine/Naloxone 8/2 Mg Film) 1 film SUBLINGUAL TID [facility] Last Admin: 01/09/22 14:10 Dose: 1 film Docusate Sodium (Docusate Sodium 100 Mg Capsule) 100 mg PO BID PRN PRN Reason: Constipation Fluoxetine HCl (Fluoxetine Hcl 20 Mg Capsule) 20 mg PO DAILY [facility] Last Admin: 01/09/22 08:59 Dose: 20 mg Folic Acid (Folic Acid 1 Mg Tablet) 1 mg PO DAILY [facility] Last Admin: 01/09/22 08:59 Dose: 1 mg Gabapentin (Gabapentin 400 Mg Capsule) 400 mg PO TID [facility] Last Admin: 01/09/22 14:10 Dose: 400 mg Hydroxyzine HCl (Hydroxyzine Hcl 25 Mg Tablet) 25 mg PO Q6H PRN PRN Reason: Anxiety Last Admin: 01/09/22 17:49 Dose: 25 mg Lorazepam (Lorazepam 1 Mg Tablet) 1 mg PO Q4H PRN PRN Reason: Alcohol Withdrawal Last Admin: 01/09/22 08:59 Dose: 1 mg Magnesium Hydroxide (Milk Of Magnesia 30 Ml Oral.Susp) 30 ml PO DAILY PRN PRN Reason: Constipation Last Admin: 01/09/22 12:02 Dose: 30 ml Multi-Ingred Cream/Lotion/Oil/Oint (Mineral Oil/Petrolatum,White 106 Gm Tube) 1 appl TOPICAL BID [facility]; Protocol Last Admin: 01/09/22 09:00 Dose: 1 appl Multivitamins/Vitamin C (Multivitamin Tablet) 1 tab PO DAILY [facility] Last Admin: 01/09/22 08:59 Dose: 1 tab Nicotine (Nicotine 21 Mg Patch.Td24) 21 mg TRANSDERMA DAILY [facility] Last Admin: 01/09/22 08:59 Dose: 21 mg Nicotine Polacrilex (Nicotine Polacrilex 2 Mg Gum) 4 mg BUCCAL Q2H PRN PRN Reason: Nicotine Cravings Last Admin: 01/09/22 17:37 Dose: 4 mg Thiamine HCl (Thiamine Hcl 100 Mg Tablet) 100 mg PO DAILY [facility] Last Admin: 01/09/22 08:59 Dose: 100 mg Trazodone HCl (Trazodone Hcl 100 Mg Tablet) 100 mg PO BEDTIME PRN PRN Reason: Insomnia Last Admin: 01/08/22 21:03 Dose: 100 mg Allergies Allergies Allergy/AdvReac Type Severity Reaction Status Date / Time No Known Allergies Allergy Verified 01/04/22 00:35 Assessment & Plan Assessment & Plan (1) MDD (major depressive disorder): Status: Acute Code(s): F32.9 - Major depressive disorder, single episode, unspecified Assessment and Plan: 01/06/22- Continue current plan. 01/07/22- Continue current plan. 01/09/22- Discharge 01/11/22. Referral to PHP. (2) Anxiety: Status: Acute Code(s): F41.9 - Anxiety disorder, unspecified (3) Alcohol dependence: Status: Acute Code(s): F10.20 - Alcohol dependence, uncomplicated Plan 41 year old history of alcohol dependence, polysubstance abuse, opioid abuse on suboxone, depression and anxiety, and who smokes 1.5 packs cigarettes daily admitted to psychiatry. 1-MDD/anxiety -Plan per psychiatry 2-ADD/ADHD -plan per psychiatry 3-Alcohol dependence -CIWA scale score 16. -Ativan prn for etoh withdrawal symptoms -No hx etoh withdrawal seizure. Unlikely to experience seizure at this point given time since last drink -Continue thiamine. Recommend folic acid as well -Check vitamin b12 and replete as needed 4-Opioid dependence -Continue suboxone -Docusate prn for constipation 5-Polysubstance abuse- cocaine last use 01/01 and MJ -Addiction consult as ordered 6-Tobacco depedence -NPT patches Thank you for allowing me to participate in this consult. Signing off at this time. Please do not hesitate to call for further questions. I spent minutes with the patient and/or on the patient floor today, greater than?50% of which was spent counseling/coordinating care. Patient educated on: medication risk/benefits and therapeutic strategies Informed Consent: further education needed Reason for contiued inpatient stay Substantial Risk for: harm to self, inability to function and rapid decompensation
[2022-01-09] MEDS: traZODone HCL 100 MG TABLET PO ×2 (21:28→22:27)
[2022-01-10 06:00] VITALS: BP 121/75; PULSE 93; RESP 20; TEMP 36.8; O2SAT 96
[2022-01-10] MEDS: FLUoxetine HCl 20 MG CAPSULE PO (09:13)
[2022-01-10] MEDS: Folic Acid 1 MG TABLET PO (09:13)
[2022-01-10] MEDS: Dextroamphetamine/Amphetamine XR 10 MG CAP.ER.24H 30 MG PO (09:13)
[2022-01-10] MEDS: Gabapentin 400 MG CAPSULE PO ×3 (09:14→19:18)
[2022-01-10] MEDS: Thiamine HCL 100 MG TABLET PO (09:14)
[2022-01-10] MEDS: Multivitamin TABLET 1 TAB PO (09:14)
[2022-01-10] MEDS: Nicotine 21 MG PATCH.TD24 TRANSDERMA ×2 (09:15→11:54)
[2022-01-10] MEDS: Buprenorphine/Naloxone 8/2 mg FILM 1 FILM SUBLINGUAL ×3 (09:44→19:18)
[2022-01-10] MEDS: Acetaminophen 325 MG TABLET 650 MG PO ×2 (10:07→16:57)
[2022-01-10] MEDS: Milk of Magnesia 30 ML ORAL.SUSP PO (10:07)
[2022-01-10] MEDS: hydrOXYzine HCL 25 MG TABLET PO (15:25)
--- NOTE | 2022-01-10 17:15 | P.PNPSI_ITS ---
Subjective Subjective Date of Service: 01/10/22 Reason For Visit: Unspecified trauma, stress related d/o Subjective Notes: [place] Warning and Conditional Voluntary Interim History: I spoke with pt this evening and spoke with pt's team. He is ready to discharge tomorrow. Says he already spoke to his suboxone clinic provider and he has all his scripts ordered except for nicotine replacement and prozac. He denies having any questions or concerns. Sleep and appetite are good. Mood is antsy about leaving. Says he has a good network and support system. Medication Compliance: Yes Side effects from medications: No Attending Groups: Yes Review of Systems Acute medical concerns: No Medical Review of Systems: unchanged Mental Status Exam Mental Status Exam Narrative: Patient Appearance: Appropriate Patient Orientation: Person, Place, Time and Situation Patient Behavior: Talkative and Good Eye Contact Mood Description: Withdrawn, Anxious and Apprehensive Affect Description: Anxious Patient Cognition Impaired: No Ability to Follow Directions: Good Speech Pattern: Spontaneous Speech Memory Description: Intact Hallucinations: None Delusions: Not Present Perceptual Disturbances: Depersonalization and Derealization Thought Content: positive for Perseveration and positive for Suicidal Ideation (denies) Depressive Symptoms: Increased Anxiety, Loss of Int. in Activity, Hopelessness, Unhappiness, Increased Fatigue, Thoughts of /Suicide (denies currently), Low Self Esteem, Loss of Energy and Difficulty Concentrating Judgement: Good Diagnostics Vital Signs (24Hr): Vital Signs - 24 hr 01/09/22 18:00 01/10/22 06:00 Temperature 97.8 F 98.2 F Pulse Rate 97 93 Respiratory Rate 18 20 Blood Pressure 129/80 121/75 Pulse Oximetry 97 96 Oxygen Delivery Method Room Air Room Air BMI result Body Mass Index 24.0 Medications Medications Current Medications Acetaminophen (Acetaminophen 325 Mg Tablet) 650 mg PO Q6H PRN PRN Reason: Headache/Pain Mild Scale (1-3) Last Admin: 01/10/22 16:57 Dose: 650 mg Al Hydroxide/Mg Hydroxide (Magnesium Hydrox/Alum Hydrox 30 Ml Oral.Susp) 30 ml PO Q6H PRN PRN Reason: Heartburn/Nausea Amphetamine/Dextroamphetamine (Dextroamphetamine/Amphetamine Xr 10 Mg Cap.Er.24h) 30 mg PO DAILY [facility] Last Admin: 01/10/22 09:13 Dose: 30 mg Buprenorphine/Naloxone (Buprenorphine/Naloxone 8/2 Mg Film) 1 film SUBLINGUAL TID [facility] Last Admin: 01/10/22 14:09 Dose: 1 film Docusate Sodium (Docusate Sodium 100 Mg Capsule) 100 mg PO BID PRN PRN Reason: Constipation Fluoxetine HCl (Fluoxetine Hcl 20 Mg Capsule) 20 mg PO DAILY [facility] Last Admin: 01/10/22 09:13 Dose: 20 mg Folic Acid (Folic Acid 1 Mg Tablet) 1 mg PO DAILY [facility] Last Admin: 01/10/22 09:13 Dose: 1 mg Gabapentin (Gabapentin 400 Mg Capsule) 400 mg PO TID [facility] Last Admin: 01/10/22 14:09 Dose: 400 mg Hydroxyzine HCl (Hydroxyzine Hcl 25 Mg Tablet) 25 mg PO Q6H PRN PRN Reason: Anxiety Last Admin: 01/10/22 15:25 Dose: 25 mg Lorazepam (Lorazepam 1 Mg Tablet) 1 mg PO Q4H PRN PRN Reason: Alcohol Withdrawal Last Admin: 01/09/22 08:59 Dose: 1 mg Magnesium Hydroxide (Milk Of Magnesia 30 Ml Oral.Susp) 30 ml PO DAILY PRN PRN Reason: Constipation Last Admin: 01/10/22 10:07 Dose: 30 ml Multi-Ingred Cream/Lotion/Oil/Oint (Mineral Oil/Petrolatum,White 106 Gm Tube) 1 appl TOPICAL BID [facility]; Protocol Last Admin: 01/10/22 09:17 Dose: Not Given Multivitamins/Vitamin C (Multivitamin Tablet) 1 tab PO DAILY [facility] Last Admin: 01/10/22 09:14 Dose: 1 tab Nicotine (Nicotine 21 Mg Patch.Td24) 21 mg TRANSDERMA DAILY [facility] Last Admin: 01/10/22 11:54 Dose: 21 mg Nicotine Polacrilex (Nicotine Polacrilex 2 Mg Gum) 4 mg BUCCAL Q2H PRN PRN Reason: Nicotine Cravings Last Admin: 01/09/22 17:37 Dose: 4 mg Thiamine HCl (Thiamine Hcl 100 Mg Tablet) 100 mg PO DAILY [facility] Last Admin: 01/10/22 09:14 Dose: 100 mg Trazodone HCl (Trazodone Hcl 100 Mg Tablet) 100 mg PO BEDTIME PRN PRN Reason: Insomnia Last Admin: 01/09/22 22:27 Dose: 100 mg Allergies Allergies Allergy/AdvReac Type Severity Reaction Status Date / Time No Known Allergies Allergy Verified 01/04/22 00:35 Assessment & Plan Assessment & Plan (1) MDD (major depressive disorder): Status: Acute Code(s): F32.9 - Major depressive disorder, single episode, unspecified Assessment and Plan: 01/06/22- Continue current plan. 01/07/22- Continue current plan. 01/09/22- Discharge 01/11/22. Referral to [facility]. (2) Anxiety: Status: Acute Code(s): F41.9 - Anxiety disorder, unspecified (3) Alcohol dependence: Status: Acute Code(s): F10.20 - Alcohol dependence, uncomplicated Plan 41 yo male, hx PTSD, ADHD, Depression, Opiate, Alcohol, Cocaine, Cannabis use, on Suboxone admitted in transfer for SI and need for detox from alcohol. Plan: Alcohol withdrawal- CIWA, Lorazepam prn, vitamin replacement ? ADHD- Vyvanse 70 mg not on formulary- Adderall XR 30 mg daily ? Suboxone verified with [facility]; 11/01 tid ? Collateral contacts ? Out patient referrals. I spent minutes with the patient and/or on the patient floor today, greater than?50% of which was spent counseling/coordinating care. Patient educated on: diagnosis, medication risk/benefits and therapeutic strategies Reason for contiued inpatient stay Substantial Risk for: med/psych decompensation
[2022-01-10 19:14] VITALS: BP 112/60; PULSE 97
[2022-01-10] MEDS: traZODone HCL 100 MG TABLET PO ×2 (21:05→22:04)
[2022-01-11 06:00] VITALS: BP 115/57; PULSE 81; RESP 17; TEMP 36.2; O2SAT 96
[2022-01-11] MEDS: Dextroamphetamine/Amphetamine XR 10 MG CAP.ER.24H 30 MG PO (08:47)
[2022-01-11] MEDS: Gabapentin 400 MG CAPSULE PO (08:47)
[2022-01-11] MEDS: Nicotine 21 MG PATCH.TD24 TRANSDERMA (08:47)
[2022-01-11] MEDS: Multivitamin TABLET 1 TAB PO (08:47)
[2022-01-11] MEDS: FLUoxetine HCl 20 MG CAPSULE PO (08:47)
[2022-01-11] MEDS: Folic Acid 1 MG TABLET PO (08:47)
[2022-01-11] MEDS: Thiamine HCL 100 MG TABLET PO (08:47)
[2022-01-11] MEDS: Buprenorphine/Naloxone 8/2 mg FILM 1 FILM SUBLINGUAL (09:10)
[2022-01-11] MEDS: hydrOXYzine HCL 25 MG TABLET PO (11:00)
--- NOTE | 2022-01-11 12:00 | PM.PSYDC ---
DS: Providers Provider Date of Service: 01/04/22 Date of admission: 01/04/22 00:24 Date of discharge: 01/04/22 Primary care physician: Unknown Physician Admitting clinician: Isaura Welch Attending physician on admission: Joel Carlin Consults: 01/04/22 00:35 Consult to Hospitalist Routine Consulting Provider: Hospitalist Reason For Exam: OSH admission 01/04/22 10:59 Addiction Medicine Routine Consulting Provider: Cici Elam Reason for consultation: Suboxone pt; Alcohol use; PTSD- resources for etoh self help Has provider been notified: No 01/04/22 11:55 Consult to Hospitalist Routine Consulting Provider: Hospitalist Reason For Exam: admission physical Attending physician on discharge: Joel Carlin Discharging clinician: Isaura Welch DS: Diagnosis Discharge Diagnosis (1) MDD (major depressive disorder): Status: Inactive (2) Anxiety: Status: Inactive (3) Alcohol dependence: Status: Inactive DS: Medications Discharge Medications Home Medications: Previous Rx's Medication Instructions Recorded disulfiram 500 mg tablet 500 mg PO DAILY #30 tabs 01/06/22 fluoxetine 20 mg capsule 20 mg PO DAILY #30 caps 01/10/22 nicotine (polacrilex) 2 mg gum 4 mg buccal Q2H PRN Nicotine 01/10/22 Cravings #40 ea nicotine 21 mg/24 hr daily 21 mg transdermal DAILY #28 ea 01/10/22 transdermal patch Mental Status Exam Mental Status Exam Patient Appearance: Appropriate Patient Orientation: Person, Place, Time and Situation Patient Behavior: Talkative and Good Eye Contact Mood Description: Anxious and Apprehensive Affect Description: Anxious Patient Cognition Impaired: No Ability to Follow Directions: Good Speech Pattern: Spontaneous Speech Memory Description: Intact Hallucinations: None Delusions: Not Present Perceptual Disturbances: Derealization Thought Content: positive for Suicidal Ideation (denies) Depressive Symptoms: Increased Anxiety, Thoughts of /Suicide (denies currently), Low Self Esteem, Loss of Energy and Difficulty Concentrating Judgement: Good Data Data Completed and Pending Completed studies during hospitalization [Text1]: 01/06/22 08:50 Vitamin B12 399 Folate 6.6 DS: Summary Hospital Course Hospital Course: Admission to adult psychiatry for exacerbation of symptoms of depression and alcohol use disorder. Prozac was initiated (pt has a history of success with Prozac) along with Antabuse. Pt utilized the milieu to discuss the current issues in his psychosocial situation and was able to do some active problem solving to assist him in maintaining sobriety and identification of solid supports in his life. Time spent discussing smoking cessation with patient: 3 to 10 minutes Status at Discharge Functional status at discharge: independent ambulation Overall status at discharge: patient is progressing back to baseline Time Spent with Patient Time attestation: Total time spent providing and/or coordinating discharge services: 35 Time spent: Greater than 30 minutes Discharge Plan Discharge Anticipated Discharge Date/Time: 01/11/22 10:00 Patient Disposition: Home, Self-Care Discharge Diagnosis: MDD recurrent, AUD Referrals: [facility]: Intake Assessment [Other] - 01/12/22 1:00 pm ( IN PERSON on , January 12 at 1pm, 01/12/2022.) [facility]: Psychiatric Assessment [Other] - 02/08/22 8:00 am ( TELEHEALTH APPOINTMENT ) [facility]: Medication Management [Other] - 03/08/22 9:00 am ludmila hawk [Other] - 1 Week (office will call us or pt. back with f/u appointment) Discharge Medications: New disulfiram 500 mg tablet 500 mg PO DAILY Qty: 30 0RF nicotine (polacrilex) 2 mg Gum 4 mg buccal Q2H PRN (Reason: Nicotine Cravings) Qty: 40 0RF nicotine 21 mg/24 hr Patch 24 Hour 21 mg transdermal DAILY Qty: 28 0RF fluoxetine 20 mg Capsule 20 mg PO DAILY Qty: 30 0RF Discharge Orders: Discharge Order (Routine); Ordered 01/11/22 Ordered By: Jacey Parks Diet: Advance to usual diet Activity on Discharge: As tolerated Stand Alone Forms: Patient Portal Discharge page, Community Support Care Plan Goals: Continue psychiatric medications as prescribed and follow up with outpatient referrals and PCP. Health Concerns: Alcohol Abstinence Substance Use Abstinence Plan of Treatment: Attend follow up appointments with OP psych services and PCP Patient will continue on psychotropic medication regimen for mood stability and sobriety Take medications as directed A one month supply of medication has been sent to your pharmacy Crisis Team if needed [phone] Call and or return if needed Assessment: Risk assessment at time of discharge:? Patient was interviewed prior to discharge and found to be fully oriented and without any SI or HI. Patient has insight and demonstrates good judgment in terms of wanting to pursue treatment. Patient is not in imminent risk of harm to self or others and has a safety plan that includes presenting to the closest ER or calling 911 if feeling unsafe.? Patient has been observed closely by nursing and unit staff throughout admission; patient has not engaged in any behaviors that suggest dangerousness to self or others and has demonstrated appropriate behaviors and impulse control Discharge Date/Time: 01/11/22 12:28
== END 2022-01-11 12:28 | disposition home or self-care (01) | DRG 751 ==
PROVIDERS: Admitting Provider Psychiatry & Neurology Psychiatry; Visit Provider Clinical Nurse Specialist Psychiatric/Mental Health, Adult
DX: F33.9 Major depressive disorder, recurrent, unspecified (principal); F10.20 Alcohol dependence, uncomplicated; F11.20 Opioid dependence, uncomplicated; F98.8 Other specified behavioral and emotional disorders with onset usually occurring in childhood and adolescence; F41.9 Anxiety disorder, unspecified; F43.10 Post-traumatic stress disorder, unspecified; F17.210 Nicotine dependence, cigarettes, uncomplicated; Z71.6 Tobacco abuse counseling; Z79.899 Other long term (current) drug therapy
CPT/HCPCS: 36415; 82607; 82746; 90792

== ENCOUNTER 2022-11-01 02:17 | Emergency (ER) | payer OTHER, SELFPAY ==
--- NOTE | 2022-11-01 02:36 | ED_ITS ---
HPI - Alcohol General Chief Complaint: ETOH/Substance Use Stated Complaint: ETOH Time Seen by Provider: 11/01/22 02:32 Source: patient Mode of arrival: EMS Limitations: no limitations History of Present Illness HPI narrative: patient comes to the emergency room complaining of alcohol intoxication. Patient states that he is requesting detox. Denies suicidal or homicidal ideation, denies using any other drugs besides drinking vodka today. Patient denies any injuries, denies falling. Related Data Previous Rx's Medication Instructions Recorded disulfiram 500 mg tablet 500 mg PO DAILY #30 tabs 01/06/22 fluoxetine 20 mg capsule 20 mg PO DAILY #30 caps 01/10/22 nicotine (polacrilex) 2 mg gum 4 mg buccal Q2H PRN Nicotine 01/10/22 Cravings #40 ea nicotine 21 mg/24 hr daily 21 mg transdermal DAILY #28 ea 01/10/22 transdermal patch Allergies Allergy/AdvReac Type Severity Reaction Status Date / Time No Known Allergies Allergy Verified 01/04/22 00:35 Review of Systems Review of Systems: Constitutional : No Weight loss, No Fever, No Chills, No Night Sweats, No Fatigue, No Malaise ENT/Mouth : No Hearing loss, No Ear Pain, No Nasal Congestion, No Sinus Pain, No Hoarseness, No sore throat, No Rhinorrhea, No Swallowing Difficulty Eyes: No Eye Pain, No Swelling, No Redness, No Foreign Body, No Discharge, No Vision Changes Cardiovascular : No Chest Pain, No SOB, No Dyspnea on Exertion, No Orthopnea, No Edema, No Palpitations Respiratory : No Cough, No Sputum, No Wheezing, No Smoke Exposure, No Dyspnea Gastrointestinal : No Nausea, No Vomiting, No Diarrhea, No Constipation, No abdominal Pain, No Hematochezia, No Melena Genitourinary : no irregular bleeding, No Dysuria, No Urinary Frequency, No Hematuria, No Urinary Incontinence, No Urgency, No Flank Pain, No Urinary Flow Changes, No Hesitancy Musculoskeletal : No joint pain, No Myalgias, No Joint Swelling Skin : No Skin Lesions, No rash Neuro : No Weakness, No Numbness, No Paresthesias, No Loss of Consciousness, No Dizziness, No Headache Psych : No Anxiety/Panic, No Depression, No SI/HI/AH/VH, Admits to heavily drinking alcohol, requesting detox Heme/Lymph: No Bruising, No Bleeding,No Lymphadenopathy Endocrine : No Polyuria, No Polydipsia, No Temperature Intolerance [facility] Past Medical History Medical History (Updated 11/01/22 @ 02:40 by Magali Mcclure MD) ADD (attention deficit disorder) Alcohol dependence Alcohol use disorder, severe, dependence Anxiety MDD (major depressive disorder) Opioid use disorder, severe, on maintenance therapy PTSD (post-traumatic stress disorder) Family History Family History (Updated 01/04/22 @ 13:12 by QUITA Flowers) Father CAD (coronary artery disease) Diabetes Mother Lung cancer Social History Social History Household Members: None Housing: Apartment Do you presently have visiting nurse or other home services: No Alcohol intake: never Patient Tobacco Use Status: Current everyday Tobacco user Tobacco use type: Cigarette Cigarette Packs Per Day: 1 Cigarettes Per Day: 20.0 Years Smoked: 20 Smoked in Last 30 Days: No e-Cigarette/Vaping Use: Currently Using Second Hand Smoke Exposure: No Use of substances other than those prescribed or required for medical reasons: No Substance Use Type: Crack/Cocaine and Marijuana Advance Directives: No service: No Sexual orientation: Straight/Heterosexual Physical Exam ED Vital Signs: Vital Signs - 24 hr 11/01/22 03:09 11/01/22 05:52 11/01/22 08:08 Temperature 97.6 F 98 F Pulse Rate 70 63 69 Respiratory Rate 12 11 L 12 Blood Pressure 122/69 96/65 115/78 Pulse Oximetry 95 95 94 Oxygen Delivery Method Room Air Room Air Room Air BMI result Body Mass Index 23.3 Course Course Course Narrative: - detox bed search exhausted. Patient given resources to follow up in the morning to try to get into detox on his own. Safe for discharge at this time Results discussed with patient including worrisome signs and symptoms and strict return precautions, and when to return to the emergency department. They verbalized understanding and feel safe for discharge at this time. Medical Decision Making Medical Decision Making MDM Narrative: - all of patient's labs pending all - physician observation started at 02:30 - care team/ assistant track coach pending - patient is not suicidal homicidal, patient is not on a Section 12. Differential Diagnosis Differential Diagnoses: The differential diagnosis associated with the presentation includes ( alcohol dependence, alcohol intoxication, substance abuse) Admission/Observation Consideration of admission/observation: Escalation of care including ad mission/observation considered ( patient will be on physician observe patient until the care team can evaluate the patient) Lab Data 11/01/22 03:15 11/01/22 03:15 Labs: Lab Results 11/01/22 11/01/22 Range/Units 03:15 03:15 WBC 5.4 (4.8-10.8) X10*3/uL RBC 4.20 L (4.60-5.80) X10*6/uL Hgb 12.5 L (14.0-18.0) g/dl Hct 38.3 L (42.0-52.0) % MCV 91.2 (80.0-98.0) fL MCH 29.8 (27.0-33.0) pg MCHC 32.6 (31.0-36.0) g/dl RDW 13.4 (11.0-16.0) % Plt Count 234 (160-400) X10*3/uL MPV 8.0 L (9.4-12.4) fL Immature Gran % (Auto) 0.4 (0.0-0.4) % Neut % (Auto) 47.7 (45-73) % Lymph % (Auto) 40.5 H (20-40) % Vernon % (Auto) 8.7 (2-11) % Eos % (Auto) 1.8 (0-4) % Baso % (Auto) 0.9 (0-2) % Lymph # (Auto) 2.2 (1.2-4.9) X10*3/uL Vernon # (Auto) 0.5 (0.1-1.2) X10*3/uL Eos # (Auto) 0.1 (0.0-0.4) X10*3/uL Baso # (Auto) 0.1 (0.0-0.2) X10*3/uL Abs Immat Gran (auto) 0.02 (0.00-0.03) X10*3/uL Absolute Neuts (auto) 2.6 (2.0-8.3) x10*3/uL Absolute Nucleated RBC 0.000 (0.0-0.012) X10*3/uL Nucleated RBC % (auto) 0.0 (0.0-0.2) /100WBC Sodium 147 H (135-145) mmol/L Potassium 3.5 (3.3-5.1) mmol/L Chloride 109 H (96-108) mmol/L Carbon Dioxide 22 (22-29) mmol/L Anion Gap 20 (12-20) BUN 17 H (9-16) mg/dL Creatinine 0.77 (0.5-1.4) mg/dL Estim Creat Clear Calc 138.5 Estimated GFR > 60 Random Glucose 100 (60-115) mg/dL Calcium 8.9 (8.4-10.2) mg/dL Magnesium 2.2 (1.6-2.6) mg/dL Total Bilirubin 0.5 (0.0-1.0) mg/dL Direct Bilirubin 0.2 (0.0-0.5) mg/dL AST 45 H (5-37) U/L ALT 23 (0-40) U/L Alkaline Phosphatase 86 (39-117) U/L Total Protein 7.0 (6.5-8.0) g/dL Albumin 4.3 (3.5-5.0) g/dL Ethyl Alcohol 318 H* mg/dL Medications Administered Generic Name Dose Route Start Last Admin Trade Name Freq PRN Reason Stop Dose Admin Buprenorphine/Naloxone 1 film 11/01/22 15:30 11/01/22 15:27 Buprenorphine/Naloxone 8/2 Mg Film SUBLINGUAL 1 film TID CARMEN Administration Discharge Plan Discharge Clinical Impression: Alcohol abuse, Alcohol dependence Patient Disposition: Still a Patient Prescriptions: No Action disulfiram 500 mg tablet 500 mg PO DAILY Qty: 30 0RF nicotine (polacrilex) 2 mg Gum 4 mg buccal Q2H PRN (Reason: Nicotine Cravings) Qty: 40 0RF nicotine 21 mg/24 hr Patch 24 Hour 21 mg transdermal DAILY Qty: 28 0RF fluoxetine 20 mg Capsule 20 mg PO DAILY Qty: 30 0RF
[2022-11-01 02:45] VITALS: BP 151/101; PULSE 91; O2SAT 95; BMI 23.3
[2022-11-01 03:09] VITALS: BP 122/69; PULSE 70; RESP 12; TEMP 36.4; O2SAT 95
--- NOTE | 2022-11-01 03:17 | PC.NURSE ---
patient in bed with eyes closed patient vitals are stable at this time patient had all labs to be drawn patient had no complaints of pain at this time patient will continue to be monitored for safety
[2022-11-01 03:18] LABS: MANUAL DIFF FLAG NO
[2022-11-01 03:19] LABS: Basophils Absolute Auto 0.1 X10*3/uL (0.0-0.2); Basophils Percent Auto 0.9 % (0-2); Eosinophils Absolute Auto 0.1 X10*3/uL (0.0-0.4); Eosinophils Percent Auto 1.8 % (0-4); Hematocrit 38.3 % (42.0-52.0); Hemoglobin 12.5 g/dl (14.0-18.0); Imm Gran Abs Auto 0.02 X10*3/uL (0.00-0.03); Imm Gran Pct Auto 0.4 % (0.0-0.4); Lymphocytes Absolute Auto 2.2 X10*3/uL (1.2-4.9); Lymphocytes Percent Auto 40.5 % (20-40); Mean Corpuscular HGB Conc 32.6 g/dl (31.0-36.0); Mean Corpuscular Hemoglobin 29.8 pg (27.0-33.0); Mean Corpuscular Volume 91.2 fL (80.0-98.0); Monocytes Absolute Auto 0.5 X10*3/uL (0.1-1.2); Monocytes Percent Auto 8.7 % (2-11); Neutrophils Absolute Auto 2.6 x10*3/uL (2.0-8.3); Neutrophils Percent Auto 47.7 % (45-73); Platelet Count 234 X10*3/uL (160-400); Red Cell Distribution Width 13.4 % (11.0-16.0); White Blood Count 5.4 X10*3/uL (4.8-10.8)
[2022-11-01 03:33] LABS: Alanine Aminotransferase 23 U/L (0-40); Albumin Level 4.3 g/dL (3.5-5.0); Alkaline Phosphatase 86 U/L (39-117); Anion Gap 20 (12-20); Aspartate Amino Transferase 45 U/L (5-37); Bilirubin Direct 0.2 mg/dL (0.0-0.5); Bilirubin Total 0.5 mg/dL (0.0-1.0); Blood Urea Nitrogen 17 mg/dL (9-16); Calcium 8.9 mg/dL (8.4-10.2); Carbon Dioxide 22 mmol/L (22-29); Chloride 109 mmol/L (96-108); Creatinine Clr Calc Pharmacy 138.5; Estimated Glomerular Filt Rate > 60; Ethanol 318 mg/dL; Glucose Random 100 mg/dL (60-115); Magnesium 2.2 mg/dL (1.6-2.6); Potassium 3.5 mmol/L (3.3-5.1); Sodium 147 mmol/L (135-145)
[2022-11-01 05:52] VITALS: BP 96/65; PULSE 63; RESP 11; TEMP 36.6; O2SAT 95
[2022-11-01 08:08] VITALS: BP 115/78; PULSE 69; RESP 12; O2SAT 94
--- NOTE | 2022-11-01 08:23 | PC.NURSE ---
PT IS ALERT SLEEPING. RESP EVEN AND UNLABORED. PT IS TO BE SEEN BY LINEN KEEPER. BREAKFAST ORDERED.
--- NOTE | 2022-11-01 10:05 | PC.NURSE ---
Patient woke up and asked for food. Patient given breakfast tray and sandwich at this time.
--- NOTE | 2022-11-01 13:38 | MHC.RECOVSUP ---
Addendum entered by Albert Ascencio 11/01/22 15:47: Bed Search exhausted at this time and pt encouraged to present to [facility] in the morning. provider aware. Original Note: Met with pt in ED12 who is here for [facility]. Pt reports drinking about 2 sleeves of fireball and over a pint of vodka a day for the past month and is currently 14 years sober from opiates taking 16mg Suboxone. Pt informs he was last treated at [facility] [place] and the last ATS was [facility]. Pt is interested in ATS at this time and a bed search in process. Pt has no other questions or concerns at this time.
[2022-11-01] MEDS: Buprenorphine/Naloxone 8/2 mg FILM 1 FILM SUBLINGUAL (15:27)
[2022-11-01 16:29] VITALS: BP 130/75; PULSE 66; RESP 18; TEMP 36.6; O2SAT 97
[2022-11-01 16:58] LABS: Amphetamine Screen Urine Not Detected (Not Detect); Barbiturates, Urine Not Detected (Not Detect); Benzodiazepines Screen Urine Not Detected (Not Detect); Cannabinoid Screen Urine POSITIVE (Not Detect); Cocaine Screen Urine POSITIVE (Not Detect); Fentanyl, urine Not Detected (Not Detect); Opiate Screen Urine Not Detected (Not Detect); Phencyclidine Screen Urine Not Detected (Not Detect)
== END 2022-11-01 17:00 | disposition home or self-care (01) ==
PROVIDERS: Emergency Provider Emergency Medicine
DX: F10.20 Alcohol dependence, uncomplicated (principal); F17.210 Nicotine dependence, cigarettes, uncomplicated; Y90.8 Blood alcohol level of 240 mg/100 ml or more; Z79.899 Other long term (current) drug therapy; Z71.6 Tobacco abuse counseling
CPT/HCPCS: 36415; 80048; 80076; 80307; 83735; 85025; 99284